=== PATIENT | female | born 1940 | race Caucasian/White ===

== ENCOUNTER → 2017-03-28 | Outpatient (CLI) | payer MEDICARE, OTHER | END | disposition home or self-care (01) | LOC: PCVCCLINIC 13:19 | PROVIDERS: ATTEND Internal Medicine | DX: I48.0 Paroxysmal atrial fibrillation (principal); I42.9 Cardiomyopathy, unspecified; I10 Essential (primary) hypertension; E78.5 Hyperlipidemia, unspecified; I49.5 Sick sinus syndrome; I65.23 Occlusion and stenosis of bilateral carotid arteries; Z95.4 Presence of other heart-valve replacement; Z95.2 Presence of prosthetic heart valve; Z95.0 Presence of cardiac pacemaker; Z90.5 Acquired absence of kidney; Z90.722 Acquired absence of ovaries, bilateral; Z79.82 Long term (current) use of aspirin; Z79.01 Long term (current) use of anticoagulants; Z79.899 Other long term (current) drug therapy; Z88.8 Allergy status to other drugs, medicaments and biological substances | CPT/HCPCS: 80061; 93005 ==

== ENCOUNTER → 2018-01-22 | Outpatient (CLI) | payer MEDICARE, OTHER | END | disposition home or self-care (01) | LOC: PCVCCLINIC 11:20 | DX: I25.10 Atherosclerotic heart disease of native coronary artery without angina pectoris (principal); I50.22 Chronic systolic (congestive) heart failure; I25.5 Ischemic cardiomyopathy; E78.5 Hyperlipidemia, unspecified; I48.2 Chronic atrial fibrillation; R94.31 Abnormal electrocardiogram [ECG] [EKG]; Z95.2 Presence of prosthetic heart valve; Z95.4 Presence of other heart-valve replacement; Z95.0 Presence of cardiac pacemaker; Z87.891 Personal history of nicotine dependence; Z79.899 Other long term (current) drug therapy | CPT/HCPCS: 80061; 93005; G0463 ==

== ENCOUNTER → 2018-07-29 | Outpatient (CLI) | payer MEDICARE, OTHER | END | disposition home or self-care (01) | LOC: PCVCCLINIC 13:20 | PROVIDERS: ATTEND Internal Medicine | DX: I25.10 Atherosclerotic heart disease of native coronary artery without angina pectoris (principal); I11.0 Hypertensive heart disease with heart failure; I50.32 Chronic diastolic (congestive) heart failure; I25.5 Ischemic cardiomyopathy; E78.5 Hyperlipidemia, unspecified; I48.2 Chronic atrial fibrillation; Z95.2 Presence of prosthetic heart valve; Z95.4 Presence of other heart-valve replacement; Z95.0 Presence of cardiac pacemaker; Z79.01 Long term (current) use of anticoagulants | CPT/HCPCS: 80061; 93005; G0463 ==

== ENCOUNTER → 2019-02-03 | Outpatient (CLI) | payer MEDICARE, OTHER ==
--- NOTE | 2019-02-07 07:39 | PCVCIMAG ---
APPROVED REPORT Study performed: 02/03/2019 13:18:21 EXAM: Comprehensive 2D, Doppler, and color-flow Echocardiogram Patient Location: Echo lab Status: routine BSA: 1.82 HR: 65 bpmBP: 118/76 mmHg Rhythm: A fib, Pacemaker Other Information Study Quality: Adequate Indications Congestive Heart Failure Atrial Fibrillation Pacemaker mechanical aortic valve replacement, mitral valve replacement 2D Dimensions IVSd: 15.26 (7-11mm)LVOT Diam: 23.22 (18-24mm) LVDd: 45.38 mm PWd: 13.63 (7-11mm)Ascending Ao: 27.99 (22-36mm) LVDs: 33.97 (25-40mm) Left Atrium: 46.80 (27-40mm) Aortic Root: 30.76 mm LV Single Plane 4CH: 37.23 % LV Single Plane 2CH: 41.58 % Biplane EF: 40.3 % Volumes Left Atrial Volume (Systole) Single Plane 4CH: 112.96 mLSingle Plane 2CH: 106.27 mL LA ESV Index: 66.00 mL/m2 Aortic Valve AoV Peak Tan.: 2.92 m/s AO Peak Gr.: 34.07 mmHgLVOT Max P.21 mmHg AO Mean Gr.: 15.46 mmHgLVOT Mean P.29 mmHg AO V2 Mean: 1.80 m/sLVOT Max V: 1.03 m/s AO V2 VTI: 55.92 cmLVOT Mean V: 0.71 m/s GOVIND (VTI): 1.65 [id number] V1 VTI: 21.83 cm GOVIND Vmax: 1.49 cm2 SV (LVOT): 92.44 mL Mitral Valve MV Peak Gr.: 9.79 mmHg MV Mean Gr.: 2.74 mmHg MV Max Tan.: 1.56 m/s MV Mean Tan.: 0.70 m/s MV VTI: 373.39 mm MVA VTI: 247.56 mm2 MV PHT: 100.41 ms MVA (PHT): 2.19 cm2 Pulmonary Valve PV Peak Tan.: 0.69 m/sPV Peak Gr.: 1.92 mmHg Tricuspid Valve TR Peak Tan.: 2.73 m/s TR Peak Gr.: 29.86 mmHg Left Ventricle The left ventricle is normal size. There is global hypokinesis of the left ventricle. Moderate concentric left ventricular hypertrophy. Left ventricular systolic function is mildly decreased. LVEF is 45%. This study is not technically sufficient to allow evaluation of the LV diastolic function due to atrial fibrillation and pacing. Right Ventricle The right ventricle is normal size. The right ventricular systolic function is normal. Pacemaker lead is present in the right ventricle. Atria Left atrium is severely dilated. Right atrium is severely dilated. Pacemaker lead is present in the right atrium. Aortic Valve Normally functioning mechanical aortic valve replacement. Mild aortic regurgitation. There is trace valvular aortic stenosis. Calculated aortic valve area is 1.5 cm2 with maximum pressure gradient of 34 mmHg and mean pressure gradient of 15 mmHg. Mitral Valve Normally functioning mitral valve replacement. Mild mitral regurgitation. No evidence of mitral valve stenosis. MVA is 2.2 cm2, mean gradient is 2.7 mmHg and peak gradient is 9.8 mmHg. Tricuspid Valve The tricuspid valve is normal in structure. Mild to moderate tricuspid regurgitation with PAP of 37 mmHg. Pulmonic Valve The pulmonary valve is normal in structure. There is no pulmonic valvular regurgitation. Great Vessels The aortic root is normal in size. IVC is normal in size and collapses >50% with inspiration. Pericardium There is no pericardial effusion. There is no pleural effusion. <Conclusion> Left ventricular systolic function is mildly decreased. LVEF is 45%. Both atria are severely dilated. Normally functioning mechanical aortic valve replacement. Mild aortic regurgitation. Calculated aortic valve area is 1.5 cm2 (Peak pressure gradient of 34 mmHg, mean pressure gradient of 15 mmHg). Normally functioning mitral valve replacement. Mild mitral regurgitation. No evidence of mitral valve stenosis. MVA is 2.2 cm2, (mean gradient 3 mmHg, peak gradient is 10 mmHg). Mild to moderate tricuspid regurgitation with pulmonary artery pressure of 37 mmHg. There is no pericardial effusion.
== END | disposition home or self-care (01) ==
LOC: PCVCIMAG 12:39
PROVIDERS: ATTEND Internal Medicine
DX: I08.3 Combined rheumatic disorders of mitral, aortic and tricuspid valves (principal); I48.91 Unspecified atrial fibrillation; I50.9 Heart failure, unspecified; R09.89 Other specified symptoms and signs involving the circulatory and respiratory systems; E78.5 Hyperlipidemia, unspecified
CPT/HCPCS: 93306; 93880

== ENCOUNTER → 2019-06-04 | Outpatient (CLI) | payer MEDICARE, OTHER | END | disposition home or self-care (01) | LOC: PCVCCLINIC 13:55 | PROVIDERS: ATTEND Internal Medicine | DX: I25.10 Atherosclerotic heart disease of native coronary artery without angina pectoris (principal); I25.5 Ischemic cardiomyopathy; E78.5 Hyperlipidemia, unspecified; I11.0 Hypertensive heart disease with heart failure; I50.22 Chronic systolic (congestive) heart failure; I48.2 Chronic atrial fibrillation; Z95.2 Presence of prosthetic heart valve; Z95.4 Presence of other heart-valve replacement; Z95.0 Presence of cardiac pacemaker | CPT/HCPCS: 36415; 80061; 85610; 93005; G0463 ==